=== PATIENT | female | born 1980 | race Two or more races ===

== ENCOUNTER → 2021-08-15 | Emergency (ER) | payer OTHER ==
[~2021-08-15] VITALS: Ht 160 cm; Wt 54.4 kg
[~2021-08-15] MED LIST: CIPRO500 MG PO; PYRIDIUM DS200 MG PO
== END | disposition home or self-care (01) ==
LOC: ER 20:09
DX: N39.0 Urinary tract infection, site not specified (principal); R50.9 Fever, unspecified

== ENCOUNTER 2021-11-18 15:22 | Emergency (ER) | payer OTHER ==
[~2021-11-18] VITALS: Ht 160 cm; Wt 52.2 kg
== END 2021-11-18 18:44 | disposition home or self-care (01) ==
LOC: ER 15:22
DX: N39.0 Urinary tract infection, site not specified (principal); R30.0 Dysuria

== ENCOUNTER 2022-08-04 21:02 | Emergency (ER) | payer OTHER ==
[~2022-08-04] VITALS: Ht 160 cm; Wt 59.0 kg
== END 2022-08-05 02:42 | disposition home or self-care (01) ==
LOC: ER 21:02
DX: N39.0 Urinary tract infection, site not specified (principal); Z20.822 Contact with and (suspected) exposure to COVID-19